=== PATIENT | male | born 1960 | race Caucasian/White ===

== ENCOUNTER 2024-05-31 14:26 | Emergency (ER) | payer MEDICARE, SELFPAY ==
--- NOTE | 2024-05-31 14:41 | ED_ITS ---
HPI - General Adult General Stated complaint: Fever History of Present Illness HPI narrative: Patient left before being triaged or seen by provider. Apparently, patient states that he does have bladder cancer. Reportedly, he told front end assistant that he would like labs and a cancer work up Related Data Home Medications Medication Instructions Recorded Confirmed Zn-pyg [id number] palmet 3,600 cap PO TID 03/22/24 03/22/24 capsule amlodipine 10 mg tablet 10 mg PO DAILY 03/22/24 03/22/24 atenolol 50 mg tablet 50 mg PO DAILY 03/22/24 03/22/24 cranberry fruit concentrate 250 mg 500 mg PO TID 03/22/24 03/22/24 chewable tablet (Azo Cranberry) d-mannose 500 mg capsule 1,500 mg PO BID 03/22/24 03/22/24 finasteride 5 mg tablet 5 mg PO DAILY 03/22/24 03/22/24 lorazepam 2 mg tablet 2 mg PO QID 03/22/24 03/22/24 milk thistle 500 mg capsule 1,000 mg PO BID 03/22/24 03/22/24 multivit with minerals-iron 18 1 tablet PO DAILY 03/22/24 03/22/24 mg-folic ac 400 mcg-vit K 25 mcg tablet (Adults Multivitamin) pantoprazole 40 mg tablet,delayed 40 mg PO QAM 03/22/24 03/22/24 release potassium gluconate 595 mg (99 mg) 595 mg PO BID 03/22/24 03/22/24 tablet vitamin D3 125 mcg (5,000 1 cap PO DAILY 03/22/24 03/22/24 unit)-vitamin K2 90 mcg capsule Allergies Allergy/AdvReac Type Severity Reaction Status Date / Time No Known Allergies Allergy Unverified 12/26/19 08:11 [facility] Family History Family History (System 12/26/19 @ 08:11 by Destiny Quiroz) Other Family history of alcoholism Family history of arthritis Social History Social History (System 12/26/19 @ 08:11 by Destiny Quiroz) Smoking packs per day: 1 Smoking cigarettes per day: 20.0 Years smoked: 30 Smoking pack-years: 30.00 Smoking status: Former smoker Tobacco type: cigarettes Spiritual care concerns: No Course Course Level of Care: Express Care Visit Discharge Plan Discharge Clinical Impression: Eloped from emergency department Patient Disposition: Left Without Being Sn Triaged Prescriptions: No Action milk thistle 500 mg Capsule 1,000 mg PO BID Rx Instructions: give with meal/snack lorazepam 2 mg Tablet 2 mg PO QID amlodipine 10 mg Tablet 10 mg PO DAILY pantoprazole 40 mg Tablet,Delayed Release (Dr/Ec) 40 mg PO QAM Saw [place] Complex Capsule 3,600 cap PO TID atenolol 50 mg Tablet 50 mg PO DAILY finasteride 5 mg Tablet 5 mg PO DAILY potassium gluconate 595 mg (99 mg) Tablet 595 mg PO BID Azo Cranberry 250 mg Tablet,Chewable 500 mg PO TID Adults Multivitamin 18 mg iron-400 mcg-25 mcg Tablet 1 tablet PO DAILY d-mannose 500 mg Capsule 1,500 mg PO BID vitamin D3-vitamin K2 125-90 mcg Capsule 1 cap PO DAILY Follow-up/Referrals: PHYSICIAN,MULTIFOCAL BUTTON GENERATOR [Primary Care Provider] - Time of Disposition: 14:42
[2024-05-31 16:46] VITALS: BP 122/65; PULSE 80; RESP 16; TEMP 36.1; O2SAT 99
== END 2024-05-31 14:35 | disposition left against medical advice (07) ==
PROVIDERS: Emergency Provider Internal Medicine Hematology & Oncology
DX: Z53.21 Procedure and treatment not carried out due to patient leaving prior to being seen by health care provider (principal)
CPT/HCPCS: 99199